=== PATIENT | male | born 1960 ===

== ENCOUNTER 2017-11-08 16:52 | Inpatient (IN) | payer BC ==
[2017-11-08] MEDS ORDERED: NS 0.9% 1000 ML* 1,000 ML IV ONE (17:13)
--- NOTE | 2017-11-08 17:16 | ED ---
Neurological HPI - HPI Summary HPI Summary: This is kelvin Calvo documenting for attending Jl Park M.D. This patient is a 56 year old M presenting to [facility] accompanied by his with a chief complaint of loss of peripheral vision on the right side. Pt states he was working on a ladder 2 hours ago when he had sudden loss of vision which was followed by some dizziness. The patient rates the pain 0/10 in severity. Patient denies weakness, numbness, and slurred speech. When the incident happen he contacted his who brought him to the ED. She checked her phone in the ED and he placed the call to her at 1447. Hx HTN, arthritis, and HLD. Pt chews tobacco and drinks 3 beers daily. - History of Current Complaint Chief Complaint: EDEyeProblem Stated Complaint: RT EYE PARTIAL VISION LOSS Time Seen by Provider: 11/08/17 17:05 Hx Obtained From: Patient Onset/Duration: Started hours ago - 2, Still Present Timing: Constant Onset Severity: Mild Current Severity: Mild Pain Intensity: 0 Pain Scale Used: 0-10 Numeric Syncope Context: Loss of Consciousness: No Associated Signs and Symptoms: Positive: Negative - weakness, numbness, slurred speech, - Allergy/Home Medications Allergies/Adverse Reactions: Allergies Allergy/AdvReac Type Severity Reaction Status Date / Time No Known Allergies Allergy Verified 04/19/15 11:59 Home Medications: Home Medications Atorvastatin* [Lipitor*] 20 mg PO DAILY 11/08/17 [History Confirmed 11/08/17] Lisinopril TAB* [Prinivil TAB*] 10 mg PO DAILY 11/08/17 [History Confirmed 11/08] Omeprazole CAP* [Prilosec CAP* 20 MG] 20 mg PO DAILY 11/08/17 [History Confirmed 11/08/17] celeCOXIB CAP* [CeleBREX CAP*] 200 mg PO DAILY 11/08/17 [History Confirmed 11/08] PMH/Surg Hx/FS Hx/Imm Hx Endocrine/Hematology History: Denies: Hx Diabetes, Hx Thyroid Disease Cardiovascular History: Reports: Hx Hypertension Respiratory History: Denies: Hx Asthma, Hx Chronic Obstructive Pulmonary Disease (COPD) GI History: Denies: Hx Ulcer Infectious Disease History: No Infectious Disease History: Denies: Hx Hepatitis, Hx Human Immunodeficiency Virus (HIV), Traveled Outside the [place] in Last 30 Days - Family History Known Family History: Positive: Hypertension, Diabetes, Other - HLD Negative: Renal Disease, Respiratory Disease, Seizure Disorder - Social History Occupation: Employed Full-time Lives: With Family Alcohol Use: Daily Substance Use Type: Reports: None Smoking Status (MU): Unknown if Ever Smoked Type: Smokeless Tobacco Amount Used/How Often: 1 tin every 2 days Review of Systems Positive: Other - loss of peripheral vision Neurological: Other - dizziness Negative: Weakness, Numbness, Slurred Speech All Other Systems Reviewed And Are Negative: Yes Physical Exam - Summary Physical Exam Summary: VITAL SIGNS: Reviewed. GENERAL: Patient is a well-developed and nourished male who is lying comfortable in the stretcher. Patient is not in any acute respiratory distress. HEAD AND FACE: No signs of trauma. No ecchymosis, hematomas or skull depressions. No sinus tenderness. EYES: PERRLA, EOMI x 2, No injected conjunctiva, no nystagmus. EARS: Hearing grossly intact. Ear canals and tympanic membranes are within normal limits. MOUTH: Oropharynx within normal limits. NECK: Supple, trachea is midline, no adenopathy, no JVD, no carotid bruit, no c- spine tenderness, neck with full ROM. CHEST: Symmetric, no tenderness at palpation LUNGS: Clear to auscultation bilaterally. No wheezing or crackles. CVS: Regular rate and rhythm, S1 and S2 present, no murmurs or gallops appreciated. ABDOMEN: Soft, non-tender. No signs of distention. No rebound no guarding, and no masses palpated. Bowel sounds are normal. EXTREMITIES: FROM in all major joints, no edema, no cyanosis or clubbing. NEURO: Alert and oriented x 3. SKIN: Dry and warm Triage Information Reviewed: Yes Vital Signs On Initial Exam: Initial Vitals Temp Pulse Resp BP Pulse Ox 98.1 F 83 16 194/113 98 11/08/17 17:05 11/08/17 17:05 11/08/17 17:05 11/08/17 17:05 11/08/17 17:05 Vital Signs Reviewed: Yes - [place] Coma Scale Best Eye Response: 4 - Spontaneous Best Motor Response: 6 - Obeys Commands Best Verbal Response: 5 - Oriented Coma Scale Total: 15 Diagnostics - Vital Signs Vital Signs Temp Pulse Resp BP Pulse Ox 11/08/17 17:05 98.1 F 83 16 194/113 98 - Laboratory Result Diagrams: 11/09/17 05:13 11/09/17 05:13 Lab Statement: Any lab studies that have been ordered have been reviewed, and results considered in the medical decision making process. - Radiology CXR Radiology Interpretation Completed By: Radiologist - No evidence for acute intrathoracic disease. Dr Park has reviewed this report. - CT CT Brain CT Interpretation Completed By: Radiologist - #. No evidence for intracranial hemorrhage or CT stigmata of ischemic infarct. #. Negative exam. - EKG 1722 Cardiac Rate: Tachycardia EKG Rhythm: Sinus Tachycardia - at 108 BPM EKG Interpretation: No ST elevations. National Institutes Of Health - NIH Scale Level of Consciousness: Alert/Keenly Responsive Ask Patient the Month and His/Her Age: Both Correct Ask Pt to Open/Close Eyes and Subassemblies Wirer/Release Non-Paretic Hand: Both Correctly Best Gaze (Only Horizontal Eye Movement): Normal Visual Field Testing: Partial Hemianopia Facial Paresis-Pt to Smile & Close Eyes or Grimace Symmetry: Normal/Symmetrical Motor Function - Right Arm: No Drift-Holds 10 Seconds Motor Function - Left Arm: No Drift-Holds 10 Seconds Motor Function - Right Leg: No Drift-Holds 10 Seconds Motor Function - Left Leg: No Drift-Holds 10 Seconds Limb Ataxia-Must be out of Proportion to Weakness Present: Absent Sensory (Use Pinprick to Test Arms/Legs/Trunk/Face): Normal Best Language (Describe Picture, Name Items): No Aphasia Dysarthria (Read Several Words): Normal Extinction and Inattention: No Abnormality Total Score: 1 Re-Evaluation - Re-Evaluation First Eval Re-Evaluation Time: 17:34 Change: Unchanged Comment: I informed the patient of the risks of TPA. He denies any history of rectal bleeding, recent surgery, and brain bleeding. After all risks and benefits were discussed he has agreed to take the medication. Second Eval Re-Evaluation Time: 17:38 Change: Unchanged Comment: Pt was weighed at 190lbs in the ED. Third Eval Re-Evaluation Time: 17:58 Change: Unchanged Comment: TPA that was ordered by Dr. Case was given. Fourth Eval Re-Evaluation Time: 18:15 Change: Unchanged Comment: Patient is just being taken down for his CTA imaging. Course/Dx - Course Assessment/Plan: This patient is a 56-year-old male who presents to the emergency department with chief complaint of right peripheral visual loss. Patient reports that these all occurred at approximately 2:45 PM. The patient doesnt have any upper extremity weakness, lower extremity weakness, slurred speech or any aphasia. Initially after examining the patient and the NIH score is equal to 1 I decided to call a alem marquez. Head CT was negative as per Dr. Vela. At this time I discussed the case with Dr. Case neurologist from [facility] and after he had a telestroke conference with the patient he recommended for the patient to be given TPA. The patient is hypertensive therefore the patient was given labetalol. He reports that the code off for given TPA is 185/115. A right now the patient is 177/97. Therefore the patient was given the TPA. The patient understood the benefits and risks of getting these medications and he and the agreed to get the TPA. TPA was given. At this point the patient will be going to CTA of head and neck requested by Dr. Case. I was informed by the nurse and that the blood pressure has increased again therefore he was given another 20 mg of labetalol. AT this time patient is more stable. We are awaiting for Dr. Case to review the CTA of head and neck and further disposition of patient. He will be signed out to Dr. Quiroz at [facility]. Patient is hemodynamically stable and Alert and Oriented x 3. - Differential Dx Differential Diagnoses Neuro: Positive: Benign Paroxysmal Positional Vertigo, Cerebrovascular Accident, Seizure Disorder, Transient Ischemic Attack, Vasovagal Reaction - Diagnoses Provider Diagnoses: CVA (cerebral vascular accident) During the Visit The Following Alert/Code Occurred: Alem Begum - called at 1713 - Critical Care Time Critical Care Time: 75-104 min Discharge - Sign-Out/Discharge Documenting (check all that apply): Sign-Out Patient Signing out patient TO: Tavon Bernstein - Awaiting CTA and dispo - Discharge Plan Condition: Fair Disposition: ADMITTED TO [facility] - Billing Disposition and Condition Condition: FAIR Disposition: Admitted to [facility] Attestations Scribe Attestation: This is kelvin Calvo documenting for attending Jl Park M.D. User Type: Provider - I, Dr. Park, personally performed the services described in this documentation as scribed in my presence and it is both accurate and complete. Consult Consult: 1720: We discussed patient care with Dr. Lopez, radiology. He states that the CT was negative. [address] Case the neurologist at [facility]. I informed him of the patients case and he recommended TPA. 1744 Dr. Case the neurologist at [facility] started a meeting on the Ipad. 18:00 Dr. Case suggested ordering a CTA of head and neck.
--- NOTE | 2017-11-08 17:28 | RAD ---
Indication: Neurologic changes including visual changes since 2 hours ago. Code marquez. Comparison: No prior exams available on the [facility] [place] for comparison. Technique: Noncontrast CT vertex of skull through foramen magnum. Report: The sulci, ventricles, and basal cisterns are normal for age. Begum matter white matter differentiation is preserved without evidence for edema. No intra or extra axial hemorrhage, mass, or fluid collection detected. Unremarkable visualized orbital contents. Unremarkable calvarium and skull base. Unremarkable scalp. The visualized paranasal sinuses and mastoid air spaces are clear. IMPRESSION: #. No evidence for intracranial hemorrhage or CT stigmata of ischemic infarct. #. Negative exam. #. Results discussed with Dr. Park 11/08/2017 5:25 PM EDT
[2017-11-08] MEDS ORDERED: Alteplase* 100 MG VIAL ONE (17:34)
[2017-11-08] MEDS: Labetalol IV* 5 MG/ML 20 ML VIAL IV PUSH ONE ×2 (17:37→18:03)
[2017-11-08 17:41] LABS: ABS Basophils 0.1 10^3/ul (0-0.2); ABS Eosinophils 0.1 10^3/ul (0-0.6); ABS Lymphocytes 1.8 10^3/ul (1.0-4.8); ABS Monocytes 0.7 10^3/ul (0-0.8); ABS Neutrophils 5.7 10^3/ul (1.5-7.7); ABS Nucleated RBC 0 10^3/ul; Eosinophil % 1.3 % (0-6); Hematocrit 42 % (42-52); Hemoglobin 14.5 g/dl (14.0-18.0); Lymphocyte % 21.6 % (25-47); Mean Corpuscular HGB Conc 35 g/dl (31-36); Mean Corpuscular Hemoglobin 31 pg (27-31); Mean Corpuscular Volume 88 fL (80-94); Mean Platelet Volume 8.1 um3 (7.4-10.4); Nucleated Red Blood Cells % 0; Platelet Count 272 10^3/ul (150-450); Red Blood Count 4.74 10^6/ul (4.00-5.40); Red Cell Distribution Width 14 % (10.5-15); White Blood Count 8.4 10^3/ul (3.5-10.8)
[2017-11-08] MEDS ORDERED: ALTEPLASE IV ONE ×2 (17:43)
[2017-11-08 17:49] LABS: INR 0.86 (0.77-1.02)
[2017-11-08 18:01] LABS: EGFR Non-African American 68.3 (>60)
[2017-11-08] MEDS ORDERED: Iohexol 350* (CONTRAST) 500 ML MDV IV ONE (18:21)
--- NOTE | 2017-11-08 18:51 | RAD ---
Indication: Code marquez. Hypertension. Comparison: No relevant prior exams available on the [facility] for comparison. Technique: Sitting AP chest 1833 hours Report: Clear lungs and pleural spaces. Negative for pneumothorax. The heart, pulmonary vasculature, and mediastinal contours are unremarkable. Unremarkable osseous structures and soft tissue contours. IMPRESSION: #. No evidence for acute intrathoracic disease.
--- NOTE | 2017-11-08 19:11 | RAD ---
INDICATION: RIGHT vision loss. COMPARISON: Noncontrast head CT of the same date. TECHNIQUE: Multidetector CT images were obtained from the aortic arch to the vertex of the head with 80 mL Omnipaque 350 IV contrast. Arterial phase of enhancement. Multiplanar reformation including maximum intensity projection. 3-D arterial volume rendering. Stenosis estimations based on denominator of distal arterial diameter. NECK ANGIOGRAM REPORT: Normal configuration of the aortic arch branch vessels. Negative for ostial stenosis of the aortic arch branch vessels. Tortuous RIGHT brachiocephalic artery. Minimal atherosclerotic plaque at the proximal RIGHT internal carotid artery without resulting stenosis based on NASCET criteria. Tortuous LEFT common and internal carotid arteries. Negative for LEFT carotid stenosis. Patent dominant LEFT and smaller RIGHT vertebral arteries with both vertebral arteries contributing to the basilar artery. Multilevel cervical spine degenerative spondylosis. Congenitally generous pedicles mitigate against development of acquired central canal stenosis. Uncinate process spurring results in mild bilateral osseous foraminal stenosis at C5-C6. NECK ANGIOGRAM IMPRESSION: Negative for carotid stenosis. HEAD ANGIOGRAM REPORT: Noncalcific plaque at the bilateral intracranial internal carotid arteries at the carotid canals and siphons with less than 50% stenosis resulting. Unremarkable M1 and M2 segments of the middle cerebral arteries. Patent A1 and A2 anterior cerebral artery segments. Patent anterior communicating artery. Small diameter patent basilar artery and unremarkable cerebellar artery origins. Patent RIGHT posterior cerebral artery appears supplied by the anterior circulation via the RIGHT posterior communicating artery. Patent LEFT posterior cerebral artery appears supplied by both the posterior and anterior circulation. Negative for intracranial aneurysms. HEAD ANGIOGRAM IMPRESSION: #. Noncalcific plaque at the bilateral intracranial internal carotid arteries at the carotid canals and siphons with less than 50% stenosis resulting. #. Negative for central intracranial large vessel hemodynamic significant arterial stenosis or occlusion. CPT II: CPT II Codes: 3100F
--- NOTE | 2017-11-08 19:23 | ED ---
Progress - Progress Note Progress Note: This is scribe Jerrell Jane documenting for attending Kim Bernstein M.D. CTA Head Impressions are as follows: NECK ANGIOGRAM REPORT: Normal configuration of the aortic arch branch vessels. Negative for ostial stenosis of the aortic arch branch vessels. Tortuous RIGHT brachiocephalic artery. Minimal atherosclerotic plaque at the proximal RIGHT internal carotid artery without resulting stenosis based on NASCET criteria. Tortuous LEFT common and internal carotid arteries. Negative for LEFT carotid stenosis. Patent dominant LEFT and smaller RIGHT vertebral arteries with both vertebral arteries contributing to the basilar artery. Multilevel cervical spine degenerative spondylosis. Congenitally generous pedicles mitigate against development of acquired central canal stenosis. Uncinate process spurring results in mild bilateral osseous foraminal stenosis at C5-C6. NECK ANGIOGRAM IMPRESSION: Negative for carotid stenosis. HEAD ANGIOGRAM REPORT: Noncalcific plaque at the bilateral intracranial internal carotid arteries at the carotid canals and siphons with less than 50% stenosis resulting. Unremarkable M1 and M2 segments of the middle cerebral arteries. Patent A1 and A2 anterior cerebral artery segments. Patent anterior communicating artery. Small diameter patent basilar artery and unremarkable cerebellar artery origins. Patent RIGHT posterior cerebral artery appears supplied by the anterior circulation via the RIGHT posterior communicating artery. Patent LEFT posterior cerebral artery appears supplied by both the posterior and anterior circulation. Negative for intracranial aneurysms. HEAD ANGIOGRAM IMPRESSION: #. Noncalcific plaque at the bilateral intracranial internal carotid arteries at the carotid canals and siphons with less than 50% stenosis resulting. #. Negative for central intracranial large vessel hemodynamic significant arterial stenosis or occlusion. This report was reviewed by ED physician. I, Dr. Bernstein, personally performed the services described in this documentation as scribed in my presence and it is both accurate and complete. Re-Evaluation - Re-Evaluation First Eval Re-Evaluation Time: 17:34 Change: Unchanged Comment: I informed the patient of the risks of TPA. He denies any history of rectal bleeding, recent surgery, and brain bleeding. After all risks and benefits were discussed he has agreed to take the medication. Second Eval Re-Evaluation Time: 17:38 Change: Unchanged Comment: Pt was weighed at 190lbs in the ED. Third Eval Re-Evaluation Time: 17:58 Change: Unchanged Comment: TPA that was ordered by Dr. Case was given. Fourth Eval Re-Evaluation Time: 18:15 Change: Unchanged Comment: Patient is just being taken down for his CTA imaging. Course/Dx - Course Course Of Treatment: Dr. Bernstein received this patient as a sign-out from Dr. Park. CTA Head was done with impressions described above. Dr. Mishra was consulted on the patient's case at 19:27. CTA Head results were discussed. As there was no evidence for significant clots or stenosis, The patient will be admitted to [facility] by Dr. Mishra for further workup. Patient was diagnosed with CVA. - Diagnoses Provider Diagnoses: CVA (cerebral vascular accident) During the Visit The Following Alert/Code Occurred: Code Begum - called at 1713 - Provider Notifications Discussed Care Of Patient With: Bradley Mishra Time Discussed With Above Provider: 19:27 Instructed by Provider To: Other - Dr. Mishra was consulted on the patient' s case at 19:27. CTA Head results were discussed. As there was no evidence for significant clots or stenosis, Dr. Mishra will be admitted to [facility] by Dr. Mishra for further workup. Discharge - Sign-Out/Discharge Documenting (check all that apply): Patient Departure - admit - Discharge Plan Condition: Fair Disposition: ADMITTED TO [facility]
[2017-11-08] MEDS ORDERED: Ondansetron INJ* 2 MG/ML VIAL IV PRN (20:03)
[2017-11-08] MEDS ORDERED: Acetaminophen TAB* 325 MG PO PRN (20:03)
[2017-11-08 20:13] LABS: Urine Appearance Clear; Urine Blood Negative (Negative); Urine Color Yellow; Urine Ketones Negative (Negative); Urine Protein Negative (Negative); Urine Specific Gravity 1.045 (1.010-1.030); Urine Urobilinogen Negative (Negative)
--- NOTE | 2017-11-08 22:37 | HP ---
CC: Dr. Stapleton; Dr. Davis * HISTORY AND PHYSICAL: DATE OF ADMISSION: 11/08/17 PRIMARY CARE PROVIDER: Dr. Stapleton. ATTENDING PHYSICIAN WHILE IN HOSPITAL: Dr. Bradley Mishra MD * (report dictated by Isauro Parrish NP). CHIEF COMPLAINT: Visual loss. CONSULTING NEUROLOGIST: Dr. Davis. HISTORY OF PRESENT ILLNESS: Mr. Navarrete is a 56-year-old male patient. He has a history of hyperlipidemia and hypertension and also former history of smoking. He comes in with complaints of having loss of his vision in his right eye. He says he could see out of the right eye centrally but if he tried looking to the periphery of the right eye, he could not see. He says that he noticed it when he was trying to go up to stairs at work, he could not see and he was stumbling. He noted that his gait was unsteady. He denied having any trouble with talking. There are no speech problems. He called his . His felt that they should go to the doctor, so they came right to the ER here. He denied having any weakness to one side. There was no facial drooping reported. No trouble with the right leg or right upper extremity or left side for that matter. He denied any recent changes to medications. He said he does not take aspirin. He was concerned because of this. He came into the ED. A code thomas was called. He was ultimately given TPA. We were asked to evaluate for admission. PAST MEDICAL HISTORY: Significant for: 1. Hypertension. 2. Hyperlipidemia. 3. GERD. 4. Arthritis. PAST SURGICAL HISTORY: Denied. HOME MEDICATIONS: Include: 1. Lisinopril 10 mg daily. 2. Lipitor 20 mg daily. 3. Celebrex 200 mg daily. 4. Omeprazole 20 mg daily. ALLERGIES TO MEDICATIONS: Include no known drug allergies. FAMILY HISTORY: His mother had hypertension and hyperlipidemia. Father had history of lung cancer. SOCIAL HISTORY: He is a former smoker, quit in his 20s. He does chew tobacco. He does drink occasionally. Surrogate decision maker is his . REVIEW OF SYSTEMS: There was no documented fever. Denies having any significant weight change. Denies having any double vision. No ear discharge. Denies any rhinorrhea. No sore throat. No thyroid enlargement. Denies having any chest pain. There has been no orthopnea, no nocturnal dyspnea. There has been no abdominal pain. No nausea, no vomiting. There was no dysuria , no frequency, no seizure. He denied having loss of consciousness, pruritus. No skin ulceration. Review of 14 systems completed, all others negative. PHYSICAL EXAMINATION GENERAL: Mr. Navarrete is a 56-year-old male patient. He is sitting in the ED stretcher. He does not appear to be in any acute distress. VITAL SIGNS: Now blood pressure 155/100, pulse 92, respirations 18, O2 sat 94% , temperature 98.3. HEENT: Head: Atraumatic. Eyes: EOMs are intact. Sclerae are anicteric and not pale. Throat: Oral mucosa appears to be moist. No oropharyngeal erythema. NECK: Supple. LUNGS: Clear to auscultation. No wheezes, rales, or rhonchi. HEART: Sounds S1, S2. He had a regular rate and rhythm. No murmurs, rubs or gallops. ABDOMEN: Soft, it was flat. It was nontender. Bowel sounds were present. EXTREMITIES: Pulses were 2+ throughout. He is moving all 4 extremities with 5/ 5 strength. NEUROLOGIC: The patient is awake, he is alert. He is oriented x3. Cranial nerves is overall intact. I could not appreciate any visual field cuts. He had no evidence of gaze. No facial weakness or numbness. He was moving all 4 extremities. He had no drift. His sensory was intact to the lower extremities. He had no neglect. Akusyp-ly-bqbq and wuhb-lx-qrsd testing were both intact bilaterally. No facial drooping. His speech was clear. His skin was grossly intact. LABORATORY DATA: Labs today are revealing a WBC of 8.4, RBC of 4.74, hemoglobin of 14.5, hematocrit of 42, platelet count 272. INR 0.86. PTT at 29. Sodium was 141, potassium of 3.8, chloride of 106, bicarb 25, BUN 20, creatinine 1.11, glucose 111, lactic 1, calcium 9.7, total bili is 0.5, AST 13, ALT 39, alk phos 71. Troponin 0.01 albumin of 4.4. He did have imaging in the ED starting out with brain CT, which showed impression: No evidence for intracranial hemorrhage or CT stigmata of ischemic infarct. Negative exam. Chest x-ray showed no evidence of acute intrathoracic disease. Head CTA shows noncalcified plaque at the bilateral intracranial internal carotid arteries at the carotid canals and syphons with less than 50% stenosis resulting. Negative for central intracranial large vessel, hemodynamically significant arterial occlusion or stenosis. EKG obtained today, no previous for comparison, showed a sinus tachycardia rate of 108, he has had no ST elevations, he was inverted in lead III and negative in aVF, but no elevation was noted. No previous EKGs for comparison. Old medical records were reviewed. ASSESSMENT AND PLAN: Mr. Navarrete is a 56-year-old male patient coming into the ED today with complaints of visual loss in his right eye peripherally according to the patient. We were asked to evaluate for admission. He received TPA. He will be admitted under inpatient status for: 1. Cerebrovascular accident: He was evaluated by [facility]. TPA was advised, it was given. I did touch base with Dr. Davis. He will evaluate the patient tomorrow. We will keep the patient n.p.o. He will be on bedrest tonight. After 24 hours, we will get PT/OT evaluation and a swallow eval at the bedside can be obtained. I will get a CT noncontrast and CT in 24 hours to assess for bleeding. I have ordered an MRI. I have ordered an echo with bubble study. I have ordered neuro checks per TPA protocol. We will continue with bleeding precautions and we will continue to follow him closely and follow frequent vital signs and he will be placed in our ICU. We will start aspirin after 24 hours. 2. Hypertension: The goal is to try to keep the systolic less than 180, diastolic less than 110. He is fitting the goal now. If needed, I will order p.r.n. hydralazine, but we will allow for permissive hypertension and treat within those parameters. 3. Hyperlipidemia: Lipid panel is pending. We will continue with statin. 4. DVT prophylaxis: SCDs have been ordered. 5. Arthritis: I am holding the Celebrex. 6. Gastroesophageal reflux disease: I have continued his PPI therapy. 7. Fluid and nutrition: He is n.p.o. for the first 24 hours. 8. Code status: Full code. TIME SPENT: Time spent on admission, which was critical care time, was 60 minutes, greater than half of the time was spent [id number] with the patient obtaining history and physical, the other half of the time was spent going over the plan of care with the patient and implementing the plan of care. I did discuss plan of care with my attending, Dr. Mishra, he is in agreement. ISAURO PARRISH NP [id number]/[facility] #: [id number] CAROLE
[2017-11-09 05:36] LABS: ABS Basophils 0.1 10^3/ul (0-0.2); ABS Eosinophils 0.1 10^3/ul (0-0.6); ABS Lymphocytes 1.4 10^3/ul (1.0-4.8); ABS Monocytes 0.4 10^3/ul (0-0.8); ABS Nucleated RBC 0 10^3/ul; Eosinophil % 1.1 % (0-6); Hematocrit 40 % (42-52); Hemoglobin 13.6 g/dl (14.0-18.0); Lymphocyte % 20.1 % (25-47); Mean Corpuscular HGB Conc 34 g/dl (31-36); Mean Corpuscular Hemoglobin 30 pg (27-31); Mean Corpuscular Volume 89 fL (80-94); Mean Platelet Volume 7.8 um3 (7.4-10.4); Nucleated Red Blood Cells % 0; Platelet Count 249 10^3/ul (150-450); Red Blood Count 4.52 10^6/ul (4.00-5.40); Red Cell Distribution Width 13 % (10.5-15); White Blood Count 6.9 10^3/ul (3.5-10.8)
[2017-11-09 05:52] LABS: EGFR Non-African American 75.3 (>60)
[2017-11-09] MEDS ORDERED: Atorvastatin* 20 MG TAB PO SCH (09:00)
[2017-11-09] MEDS ORDERED: Omeprazole CAP* 20 MG PO SCH (09:00)
--- NOTE | 2017-11-09 10:27 | ECHO ---
Patient: ROSALINA HERRERA [facility] Rec#: [id number] : 1960 Date: 11/09/2017 Age: 56y Height: 162.56 cm / 64.0 in Weight: 89.81 kg / 197.9 lbs Sex: M BSA: 1.95 Room#: ICU4 Admit Date#: 11/08/2017 Type: Inpatient Referring: Isauro Parrish NP Reading: Rosalia Recinos MD Stereo Compiler: Shannan Cárdenas RDCS CC: Chandrika Davis CC: Armen Stapleton MD Transthoracic Echocardiogram Indication: CVA BP: 121/77 HR: 67 Rhythm: NSR Findings History: Vision loss, HTN,HLD,GERD,former smoker. Technical Comments: The study quality is good. Completed at 0825. Left Ventricle: The left ventricular chamber size is normal. Mild concentric left ventricular hypertrophy is observed. Global left ventricular wall motion and contractility are within normal limits. The estimated ejection fraction is 55-60%. There is no consistent Doppler evidence of clinically significant diastolic dysfunction. Left Atrium: The left atrial chamber size is normal. Right Ventricle: The right ventricle is mildly dilated. The right ventricular global systolic function is normal. Right Atrium: The right atrium is mildly dilated. A patent foramen ovale is not demonstrated with color Doppler and agitated contrast. Aortic Valve: The aortic valve is trileaflet. There is no evidence of aortic regurgitation. There is no evidence of aortic stenosis. Mitral Valve: The mitral valve leaflets are mildly thickened. There is trace to mild mitral regurgitation. There is no evidence of mitral stenosis. Tricuspid Valve: The tricuspid valve leaflets are normal. There is trace to mild tricuspid regurgitation. No pulmonary hypertension is noted. There is no tricuspid stenosis. Pulmonic Valve: The pulmonic valve appears normal. There is trace to mild pulmonic regurgitation. There is no pulmonic stenosis. Pericardium: The pericardium appears normal. Aorta: There is moderate dilatation of the ascending aorta. There is no dilatation of the aortic arch. There is mild dilatation of the aortic root. Pulmonary Artery: The main pulmonary artery appears normal. Venous: The venous system is not well visualized. Contrast: Normal saline was used as contrast for the bubble study. Intravenous contrast was used to help determine presence of intracardiac shunting. Conclusions Mild concentric left ventricular hypertrophy is observed. Global left ventricular wall motion and contractility are within normal limits. The estimated ejection fraction is 55-60%. Mild right ventricular chamber dilatation. The right ventricular systolic function is normal. There is trace to mild mitral regurgitation. There is trace to mild tricuspid regurgitation. No pulmonary hypertension is noted. There is moderate dilatation of the ascending aorta: 4.0 cm. No patent foramen ovale is demonstrated with color Doppler and agitated contrast. No prior echo to compare. Measurements Name Value Normal Range RVIDd (AP) 2D 2.8 cm (0.9 - 2.6) RVDdMajor (2D) 3.7 cm (2.2 - 4.4) RAd ISD 4CH 5.1 cm (3.4 - 4.9) RA (A4C)W 3.1 cm (2.9 - 4.6) IVSd (2D) 1.1 cm (0.6 - 1) LVPWd (2D) 1.1 cm (0.6 - 1) LVIDd (2D) 4.5 cm (3.6 - 5.4) LVIDs (2D) 3.4 cm - LV FS (2D) 24 % (25 - 45) Aortic Annulus 2.5 cm (1.4 - 2.6) Ao root diameter (2D) 3.8 cm (2.1 - 3.5) Ascending Ao 4 cm (2.1 - 3.4) Aortic arch 2.6 cm (1.8 - 3.4) Descending Ao 0.8 cm - LA dimension (AP) 2D 3.6 cm (2.3 - 3.8) LAd ISD 4CH 5.2 cm (2.9 - 5.3) LA ISD 4CH W 3.4 cm (2.5 - 4.5) Name Value Normal Range LA ESV SP 4CH (A/L) 43 ml - LA ESV SP 2CH (A/L) 50 ml - LA ESV BP (A/L) 48 ml - LA ESV BP (A/L) index 24.67 ml/m2 - LA ESV SP 4CH (MOD) 39 ml - LA ESV SP 2CH (MOD) 47 ml - Name Value Normal Range MV E-wave Vmax 0.6 m/sec - MV deceleration time 183 msec - MV A-wave Vmax 0.7 m/sec - MV E:A ratio 0.8 ratio - LV septal e' Vmax 0.09 m/sec - LV lateral e' Vmax 0.08 m/sec - LV E:e' septal ratio 6.67 ratio - LV E:e' lateral ratio 7.5 ratio - Name Value Normal Range AV Vmax 1.5 m/sec - AV VTI 32.3 cm - AV peak gradient 9.69 mmHg - AV mean gradient 5.08 mmHg - LVOT Vmax 0.8 m/sec - LVOT VTI 20.9 cm - LVOT peak gradient 2.75 mmHg - LVOT mean gradient 1.23 mmHg - Name Value Normal Range MR Vmax 3.7 m/sec - MR VTI 154 cm - Name Value Normal Range TR Vmax 2.3 m/sec - TR peak gradient 22 mmHg - RAP 8 mmHg - RVSP 30 mmHg - Name Value Normal Range PV Vmax 0.7 m/sec - PV peak gradient 1.91 mmHg -
--- NOTE | 2017-11-09 14:06 | CONS ---
CC: Dr. Brunner * NEUROLOGY CONSULTATION NOTE: DATE OF CONSULT: 11/09/17 PRIMARY CONSULTING PROVIDER: Dr. Brunner/Isauro Parrish NP Neurology was consulted for the evaluation of stroke, status post TPA. CHIEF COMPLAINT: Visual loss on the right side. HISTORY OF PRESENT ILLNESS: Mr. Aroldo Navarrete is a pleasant 56-year-old right- handed man, who has a history significant for dyslipidemia and hypertension, who presented to [facility] ER with symptoms of sudden onset visual loss on the right periphery. The patient was at work and he was climbing a ladder when he noticed he lost vision on the right side. He lifted his right arm and was only able to see when he got to central vision. It was extremely cloudy and nothing was there on the right side. He denied any focal weakness. He denied any paresthesias. He denied any headaches. He has never had any similar symptoms in the past. He is aspirin naive. A Code Begum was initiated yesterday at 1715. [facility] evaluated the patient and he was ultimately given TPA as he was a candidate since the visual loss is disabling neurological finding. The patient's symptoms completely resolved late last in evening at approximately 10 p.m. NIH stroke scale completed today at 10:30 a.m. was 0. The patient received TPA at 1758. PAST MEDICAL HISTORY: Dyslipidemia, hypertension, GERD, arthritis. PAST SURGICAL HISTORY: None. HOME MEDICATIONS: Include: 1. Lisinopril 10 mg p.o. daily. 2. Lipitor 20 mg nightly p.o. daily. 3. Celebrex 200 mg p.o. daily. 4. Omeprazole 20 mg daily. ALLERGIES: No known drug allergies. FAMILY HISTORY: His father due to lung cancer. His mother has hypertension and dyslipidemia. SOCIAL HISTORY: The patient is a former smoker. He quit 20 years ago. He does chew tobacco. He drinks 3 beers daily. He denied any recreational drug use. REVIEW OF SYSTEMS: A 14-point review of systems was obtained and otherwise negative except for what was mentioned in the HPI. PHYSICAL EXAM: Vitals: Temperature 99.6, heart rate 80, respiratory rate 22, blood pressure 128/87. General: Well-nourished, well-developed man, in no acute distress. He is alert and cooperative appears stated age. Head: Normocephalic, atraumatic. Eyes: Conjunctivae/corneas are clear. No sclerae icterus. Neck: Supple and symmetrical. No carotid bruit. Lungs: Clear to auscultation bilaterally. Nonlabored breathing. Cardiovascular: Regular rhythm. Normal S1, S2. Radial pulses are palpable. Extremities: Normal range of motion with no cyanosis. Skin: No skin lesions or lacerations. Psych: Affect is broad and normal mood. Easy to establish rapport. Neurological Examination: Mental Status: Awake, alert, and oriented to person, place, time, and general circumstances. Speech and language including expression, naming, repetition, and comprehension were all assessed and found to be normal. Cranial Nerves: Normal confrontation bilaterally. Pupils are mid range and reactive to light. Normal consensual response. Extraocular muscles are intact. No ptosis. No conjugate or asymmetrical nystagmus. Sensation is intact on the forehead, cheeks, and jaw region bilaterally. No facial asymmetry , although he has slight loss of the nasolabial fold on the right side when smiling. Able to hear throughout the history process. Symmetric palatal elevation. Normal strength against shoulder resistance. Tongue is symmetrical in midline with no atrophy. Motor: No abnormal movements or pronator drift. Normal bulk and tone throughout. No fasciculation. Strength is 5/5 in the upper and lower extremities bilaterally. Reflexes right/left brachioradialis 3/ 2, biceps 3/2, triceps 3/2, patella 2/2, ankles 2/2, plantar flexor bilaterally. Sensation is intact to light touch throughout. Normal vibration and proprioception at the great toes. Coordination: Normal finger-to- nose and rapid alternative movement. Gait and station: Narrow based. Normal stance and no ataxia. LABS AND IMAGING AND OTHER DIAGNOSTIC TESTING: Laboratory findings: WBC 6.9, hemoglobin 13.6, hematocrit 40, and platelet count of 249. INR 0.86. APTT 29. Sodium 139, potassium 3.9, chloride 106, carbon dioxide 27, glucose of 111. Hemoglobin A1c 5.8. Lactic acid 1. Cholesterol 189, LDL 115. Urinalysis showed no evidence of pyuria. The patient had CT head without contrast completed yesterday at 1713 on that showed no acute intracranial abnormality. He had a CTA head and neck at 1759 that showed no evidence of intracranial large vessel occlusion. He had noncalcified plaque bilateral intracranial internal carotid arteries at carotid canal with less than 50% stenosis seen bilaterally. The transthoracic echo was unremarkable and there was no evidence of wall motion contractility problems. His ejection fraction was 55/60%. There was no patent foramen ovale demonstrated on color Doppler and agitated contrast. EKG showed normal sinus rhythm with the rate of 69. Telemetry did not show any evidence of atrial fibrillation. ASSESSMENT AND RECOMMENDATIONS: 1. Mr. Aroldo Navarrete is a 56-year-old man with history significant for dyslipidemia and hypertension who presented with sudden onset of what appears to be a right homonymous hemianopsia that completely reversed after IV TPA. He received IV TPA within the four and half hour window. Other differential diagnosis such as complicated migraine headaches less likely in this case since the patient has no history of headaches. NIH stroke scale today is 0. The patient was deemed not a candidate for mechanical thrombectomy given that he did not have any large vessel occlusion. No need for physical or occupational therapy since the patient is ambulatory without assistance. I still believe he should receive at least speech evaluation. MRI of the brain without contrast is pending. We need to repeat CT of the head without contrast within 24 hours which is around 6 p.m. today to evaluate for hemorrhagic transformation. Following the CT of the head today if there is no evidence of hemorrhagic transformation, please start Plavix 75 mg daily and aspirin 81 mg daily for 30 days. He then can discontinue Plavix and start on aspirin 325 mg daily. Please increase the atorvastatin to 80 mg nightly. Please obtain speech evaluation. We discussed primary and secondary stroke prevention with the patient. Since the patient has no neurological deficits, I suspect this may be transient ischemic attack to the left posterior cerebral artery. The mechanism is unknown, but could be cardioembolic. Workup has not revealed source of emboli thus far. The patient may need to be monitored with the Holter monitor as an outpatient. 2. Dyslipidemia - Increased atorvastatin to 80 mg nightly. 3. Hypertension - Place holding parameters on all his antihypertensive agents to hold if systolic blood pressure is less than 120 mmHg. Keep his systolic blood pressure below 180 and above 120. 4. I discussed doing at bedside swallow evaluation with the bedside nurse and advanced his diet as tolerated. Neurology will continue to follow. If testing is negative by the end of the day, the patient wishes to go home if possible. We can discuss this following the imaging studies. CRITICAL CARE TIME SPENT: Critical care time 65 minutes. I spent a total of 65 minutes and greater than 50% of that was spent directly, reviewing the medical chart, obtaining history, examining the patient, education counselling, and discussing the treatment plan prognosis. I discussed his above recommendations with Dr. Brunner. [id number]/[facility] #: [id number] CAROLE
[2017-11-09] MEDS: LORazepam INJ* 2 MG/ML 1 ML VIAL IV PUSH PRN ×2 (14:18→15:21)
--- NOTE | 2017-11-09 14:53 | RAD ---
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 Assess for retained metallic foreign bodies prior to MRI. COMPARISON: November 08, 2017 CT. TECHNIQUE: AP and lateral views of the orbits were obtained. FINDINGS: No radiopaque foreign bodies are identified at the level of the orbits or visualized calvarium. Dental amalgam noted. IMPRESSION: No radiopaque orbital foreign bodies evident.
[2017-11-09] MEDS ORDERED: Atorvastatin* 80 MG TAB PO ONE (15:35)
--- NOTE | 2017-11-09 15:55 | RAD ---
Indication: Stroke. Vision loss. Image sequences: Sagittal and axial T1, axial T2, FLAIR, diffusion and susceptibility weighted images of the brain were obtained. Ventricular structures are midline. No midline shift is noted. The extra-axial spaces are unremarkable. The FLAIR images demonstrate punctate areas of signal abnormality in the deep white matter as well as in the periventricular and subcortical white matter consistent with minor microvascular change. There is a area of restriction of diffusion involving the cortex just posterior to the left calcarine sulcus. This demonstrates decreased signal on the ADC map and is consistent with a cortical infarct. No midline shift is noted. Mild vasogenic edema is noted in this area. No other areas of restriction of diffusion is noted. The posterior fossa and brainstem demonstrates no evidence of abnormal signal. Mastoid air cells demonstrate no evidence of effusion. Paranasal sinuses are otherwise unremarkable. Visualized orbits are unremarkable. IMPRESSION: Area of restriction of diffusion involving the cortex of the left occipital lobe just posterior to the calcarine sulcus consistent with a cortical infarct. Likely chronic ischemic White matter change is noted.
--- NOTE | 2017-11-09 17:09 | RAD ---
Indication: CVA. Received TPA. Comparison: November 09, 2017 MRI and November 08, 2017 CT. Technique: Noncontrast CT vertex of skull through foramen magnum. Report: Based on correlation with the MRI of the same date there is subtle marquez matter white matter obscuration at the medial LEFT occipital lobe corresponding with the region of the diffusion abnormality. Negative for associated mass effect with normal cerebral sulci, ventricles, and basal cisterns. No new region of marquez matter white matter obscuration evident. Negative for intra or extra-axial hemorrhage. Unremarkable calvarium and skull base. Clear visualized paranasal sinuses and mastoid air spaces. Unremarkable scalp. IMPRESSION: #. Based on correlation with the MRI of the same date there is subtle marquez matter white matter obscuration at the medial LEFT occipital lobe corresponding with the region of the diffusion abnormality. #. Negative for mass effect. #. Negative for intracranial hemorrhage.
[2017-11-09] MEDS ORDERED: Aspirin 81 mg CHEW TAB* 81 MG TAB.CHEW PO ONE (17:33)
[2017-11-09] MEDS ORDERED: Clopidogrel TAB* 75 MG PO ONE (17:33)
[2017-11-09 17:39] VITALS: BP 103/70
[2017-11-09] MEDS ORDERED: Atorvastatin* 20 MG TAB PO ONE (18:00)
[2017-11-10] MEDS ORDERED: CMC: Pantoprazole TAB (NF) 40 MG TAB PO SCH (09:00)
--- NOTE | 2017-11-10 13:44 | DS ---
DISCHARGE SUMMARY: DATE OF ADMISSION: 11/08/17 DATE OF DISCHARGE: 11/09/17 ADMITTING PROVIDER: Isauro Parrish NP. ATTENDING PHYSICIAN ON THE DAY OF DISCHARGE: Toney Brunner MD. PRIMARY CARE PHYSICIAN: Dr. Stapleton. CONSULTING NEUROLOGIST: Dr. Davis. CHIEF COMPLAINT: Right peripheral vision loss. PRINCIPAL DIAGNOSIS: Left occipital ischemic stroke. HISTORY OF PRESENT ILLNESS AND HOSPITAL COURSE: Aroldo Navarrete is a 56-year-old male with past medical history of hypertension, hyperlipidemia, former smoker. He was standing on a ladder at work when he suddenly noticed that the right periphery of his vision in right eye was suddenly cloudy. He had some gait instability and presented to the [facility] Emergency Room. He denied any slurring of speech, focal weakness, or facial drooping. Jovanna marquez was called in the emergency room. Noncontrast Head CT showed no evidence of intracranial hemorrhage or CT stigmata of ischemic infarct. Head CTA demonstrated no large vessel hemodynamically significant arterial stenosis or occlusion and noncalcific plaque at the bilateral intracranial internal carotid arteries at the carotid canals and siphons were less than 50% stenosis resulting. [facility] recommended administration of tPA thrombolytics. The patient was monitored in the intensive care unit with frequent neuro checks. He had a transthoracic echocardiogram with bubble study, which showed no evidence of PFO. Ejection fraction was 55% to 60%. No evidence of diastolic dysfunction. [id number] mitral regurgitation, [id number] tricuspid regurgitation, mild concentric left ventricular hypertrophy. Dr. Chandrika Davis of Neurology consulted in the morning on hospital day #2. The patient got a repeat noncontrast CT head 24 hours after tPA administration, which was again negative for any intracranial hemorrhage. He received a MRI of the brain at the same time that was an noncontrast that demonstrated an area of restriction of diffusion involving the cortex of the left occipital lobe just posterior to the calcarine sulcus consistent with a cortical infarct along with likely chronic ischemic white matter changes. Dr. Davis recommended initiation of Plavix 75 mg daily, aspirin 81 mg daily, both of these for 30 days, after which the patient will be transitioned to 324 mg of aspirin daily. Recommended increase his home atorvastatin to 80 mg daily. The patient had LDL of 115 and HDL of 48 and A1c of 5.8. He is being recommended followup with potential Holter monitor or loop recorder to document any occult atrial fibrillation that may have caused an embolic stroke. His visual deficits had completely resolved he says by the morning of hospital day #2, but of note, it was not present on neurological exam by Isauro Parrish later in the day on hospital day #1. NIH stroke scale on discharge was 0. Luna score was 0. DISCHARGE MEDICATIONS: Include: 1. Omeprazole 20 mg p.o. daily. 2. Aspirin 81 mg daily (new). 3. Atorvastatin 80 mg p.o. daily (increased from 20 mg daily). 4. Clopidogrel 75 mg p.o. daily for 30 days. 5. Lisinopril 10 mg p.o. daily. 6. His Celebrex was recommended to be held in the setting of his new dual antiplatelet therapy. DISCHARGE DIET: Heart-healthy, carbohydrate consistent given his borderline diabetes, A1c of 5.8. ACTIVITY LEVEL: No restrictions. FOLLOWUP: Please follow up with Dr. Armen Stapleton within 5 days of discharge. 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 Deni Delong and Dr. Marc Ovalles respectively. He should be followed up within 1 to 4 weeks for Cardiology and 2 to 4 weeks for Neurology. As mentioned, the benefit of occult atrial fibrillation monitoring with Holter or loop recorder to be considered as an outpatient. TIME SPENT ON DISCHARGE: Thirty-five minutes. [id number]/[facility] #: [id number] [facility]
== END 2017-11-09 18:30 | disposition home or self-care (01) | DRG 45 ==
LOC: ED 16:52 → ICU 20:05
PROVIDERS: ADMIT Hospitalist; ATTEND Hospitalist
DX: I63.9 Cerebral infarction, unspecified (principal); I10 Essential (primary) hypertension; E78.5 Hyperlipidemia, unspecified; M19.90 Unspecified osteoarthritis, unspecified site; F17.228 Nicotine dependence, chewing tobacco, with other nicotine-induced disorders; R40.2142 Coma scale, eyes open, spontaneous, at arrival to emergency department; R40.2362 Coma scale, best motor response, obeys commands, at arrival to emergency department; R40.2252 Coma scale, best verbal response, oriented, at arrival to emergency department; R00.0 Tachycardia, unspecified; R29.701 NIHSS score 1; H54.61 Unqualified visual loss, right eye, normal vision left eye; M47.812 Spondylosis without myelopathy or radiculopathy, cervical region; M48.02 Spinal stenosis, cervical region; I65.23 Occlusion and stenosis of bilateral carotid arteries; K21.9 Gastro-esophageal reflux disease without esophagitis; I08.1 Rheumatic disorders of both mitral and tricuspid valves; R73.03 Prediabetes; Z80.1 Family history of malignant neoplasm of trachea, bronchus and lung; Z79.01 Long term (current) use of anticoagulants; Z72.89 Other problems related to lifestyle; Z83.3 Family history of diabetes mellitus; Z82.49 Family history of ischemic heart disease and other diseases of the circulatory system; Z83.49 Family history of other endocrine, nutritional and metabolic diseases; Z79.82 Long term (current) use of aspirin
CPT/HCPCS: 36415; 70030; 70450; 70496; 70498; 70551; 71045; 80048; 80053; 80061; 81003; 83036; 83605; 84484; 85025; 85610; 85730; 86850; 86900; 86901; 87641; 93005; 93306; 99285; A9270-GY; J2060; J2997; Q9967

== ENCOUNTER 2018-12-31 19:33 | Observation (INO) | payer BC ==
--- OUTSIDE RECORDS SUMMARY | 2018-12-31 19:54 | XMS REPORT | Summary of Care ---
:1960 Author Organization [facility] Address [address] [facility] [place] [address] Care Team Providers Name Role Phone Armen Stapleton MD Primary Care Provider Reason for Referral Diagnostic Testing (Routine) Status Reason Specialty Diagnoses / Referred By Referred To Procedures Contact Contact Pending Review Diagnoses Ascending aortic aneurysm (HCC) Valarie, Procedures ECHOCARDIOGRAM TTE MD Kemal [address] [place] [address] Reason for Visit Reason Comments Follow Up Pt. in for a 1 Year Follow Up on CVA. Reports Doing well. Encounter Details Date Type Department Care Team Description 12/07/2018 Office Visit [facility] Valarie Cerebrovascular accident (CVA), unspecified mechanism (HCC) (Primary Dx); Cardiology MD Kemal Ascending aortic aneurysm (HCC); [address] [place] [address] [phone] Allergies Active Allergy Reactions Severity Noted Date Comments No Known Allergies Other 09/14/2007 documented as of this encounter (statuses as of 12/07/2018) Medications Medication Sig Dispensed Refills Start Date End Date Status lisinopril (PRINIVIL, Take 1 Tab 90 Tab 1 04/26/2018 Active ZESTRIL) 10 MG Oral by mouth Tab DAILY. atorvastatin Take 1 Tab 90 Tab 1 04/26/2018 Active (LIPITOR) 80 MG Oral by mouth TabIndications: DAILY. Cerebrovascular accident (CVA), unspecified mechanism (HCC) Omeprazole delayed Take 20 mg 90 Cap 1 04/26/2018 Active rel cap 20 MG Oral by mouth CAPSULE DELAYED DAILY. RELEASE celeCOXIB (CELEBREX) Take 1 Cap 90 Cap 1 04/26/2018 Active 200 MG Oral Cap by mouth DAILY NEEDED (pain). atenolol (TENORMIN) TAKE ONE 90 Tab 0 10/27/2018 Active 25 MG Oral TABLET BY TabIndications: MOUTH DAILY Ascending aortic aneurysm (HCC), Essential hypertension Aspirin 81 MG Oral Take 81 mg 0 Active Tab by mouth DAILY. aspirin 325 MG Oral Take 325 mg 0 12/07/2018 Discontinued Tab by mouth DAILY. documented as of this encounter (statuses as of 12/07/2018) Active Problems Problem Noted Date Essential hypertension 12/15/2017 Sensory hearing loss, bilateral 02/21/2014 Deviated nasal septum 02/21/2014 Obesity, unspecified 08/26/2012 Overview: This patient's BMI This patient's BMI has been calculated and is above average, and BMI management plan is completed. General patient education discussion including: weight loss link to reduction of r isk factors for cardiac and other diseases, importance of long-term maintenance treatment in weight loss, and accomplish with exercise as tolerated and diet control Pure hypercholesterolemia 09/07/2007 gerd 09/07/2007 CVA (cerebral vascular accident) documented as of this encounter (statuses as of 12/07/2018) Immunizations Name Administration Dates Next Due Influenza (IM) Preservative Free 12/15/2017 Td 03/04/2005 documented as of this encounter Social History Tobacco Use Types Packs/Day Years Used Date Former Smoker 17 Quit: 04/04/1998 Smokeless Tobacco: Current User Chew Comments: still smoke cigar Alcohol Use Drinks/Week oz/Week Comments Yes 0 Standard drinks or equivalent 0.0 cut down to 1 a day Sex Assigned at Date Recorded Not on file Job Start Date Occupation Industry Not on file Not on file Not on file Travel History Travel Start Travel End No recent travel history available. documented as of this encounter Last Filed Vital Signs Vital Sign Reading Time Taken Comments Blood Pressure 126/80 12/07/2018 3:32 PM EDT Pulse 72 12/07/2018 3:32 PM EDT Temperature - - Respiratory Rate - - Oxygen Saturation - - Inhaled Oxygen Concentration - - Weight 94.3 kg (208 lb) 12/07/2018 3:32 PM EDT Height 162.6 cm (5' 4") 12/07/2018 3:32 PM EDT Body Mass Index 35.7 12/07/2018 3:32 PM EDT documented in this encounter Patient Instructions Patient InstructionsMcKemal Seay MD - 12/07/2018 3:20 PM EDT No medication changes today. Continue to work on doing some regular exercise, weight loss, and a healthy diet. Schedule an echocardiogram sometime in the next couple of months. Wear a monitor for 30 days as we discussed. Follow up with me in 1 year or sooner if needed. documented in this encounter Progress Notes Kemal Sheppard MD - 12/07/2018 3:20 PM EDT Tony Cardiology Note Patient: Aroldo Navarrete Date of : 1960 Date of Service: 12/07/2018 REFERRING PRACTITIONER: Kemal Sheppard PRIMARY CARE PROVIDER: Armen Stapleton Chief Complaint: Chief Complaint Patient presents with Follow Up Pt. in for a 1 Year Follow Up on CVA. Reports Doing well. History of Present Illness: We had the pleasure of seeing Aroldo Navarrete today at the [facility] Office. 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 Mr. Navarrete presents to cardiology clinic today for routine annual f/u. After his last visit I hadordered a 30 day MCOT but his insurance wouldn't cover it so it never got done. He now has new and better insurance. From a symptom standpoint, he reports feeling fairly well. He hasn't been doing alot of exercise but is active around his house and feels good with that. No chest pains/pressure orlimiting dyspnea. Denies any palpitations, lightheadedness, or syncope. No orthopnea, paroxysmal dyspnea, or lower extremity edema. No recurrent neurologic symptoms. Patient Active Problem List Diagnosis Pure hypercholesterolemia gerd Obesity, unspecified Sensory hearing loss, bilateral Deviated nasal septum CVA (cerebral vascular accident) (HCC) Essential hypertension Past Medical History: Diagnosis Date Cerebral infarction involving posterior cerebral artery, left (HCC) CVA (cerebral vascular accident) (HCC) 2018 occipital Deviated nasal septum 02/21/2014 Erectile dysfunction Essential hypertension 12/15/2017 Fatty liver gerd 09/07/2007 EGD 2011 abnormal Hearing problem Hyperlipidemia 09/07/2007 Hyperplastic colon polyp 04/20/11 5 years Tennis elbow Past Surgical History: Procedure Laterality Date DENTAL OPERATION NEC 1974 root canal Allergies Allergen Reactions Nka [No Known Allergies] Other Current Outpatient Medications Medication Sig Aspirin 81 MG Oral Tab Take 81 mg by mouth DAILY. atenolol (TENORMIN) 25 MG Oral Tab TAKE ONE TABLET BY MOUTH DAILY atorvastatin (LIPITOR) 80 MG Oral Tab Take 1 Tab by mouth DAILY. celeCOXIB (CELEBREX) 200 MG Oral Cap Take 1 Cap by mouth DAILY NEEDED (pain). lisinopril (PRINIVIL, ZESTRIL) 10 MG Oral Tab Take 1 Tab by mouth DAILY. Omeprazole delayed rel cap 20 MG Oral CAPSULE DELAYED RELEASE Take 20 mg by mouth DAILY. No current facility-administered medications for this visit. Family History Problem Relation Age of Onset Cancer Father lung Social History Socioeconomic History Marital status: Spouse name: Not on file Number of children: Not on file Years of education: Not on file Highest education level: Not on file Occupational History Not on file Social Needs Financial resource strain: Not on file Food insecurity: Worry: Not on file Inability: Not on file Transportation needs: Medical: Not on file Non-medical: Not on file Tobacco Use Smoking status: Former Smoker Years: 18.00 Last attempt to quit: 04/04/1998 Years since quittin.6 Smokeless tobacco: Current User Types: Chew Tobacco comment: still smoke cigar Substance and Sexual Activity Alcohol use: Yes Alcohol/week: 0.0 standard drinks Comment: cut down to 1 a day Drug use: No Sexual activity: Yes Partners: Female Lifestyle Physical activity: Days per week: Not on file Minutes per session: Not on file Stress: Not on file Relationships Social connections: Talks on phone: Not on file Gets together: Not on file Attends orthodoxy service: Not on file Active member of club or organization: Not on file Attends meetings of clubs or organizations: Not on file Relationship status: Not on file Intimate partner violence: Fear of current or ex partner: Not on file Emotionally abused: Not on file Physically abused: Not on file Forced sexual activity: Not on file Other Topics Concern Not on file Social History Narrative Not on file Review of Systems - Negative except as noted in HPI. Physical Exam: Vitals: 12/07/18 1532 BP: 126/80 BP Location: Left arm Patient Position: Sitting Pulse: 72 Weight: 208 lb (94.3 kg) Height: 5' 4" (1.626 m) Body mass index is 35.7 kg/m. General: Obese, alert 58-y.o. male in NAD HEENT: anicteric, MMM, no E/E OP, conj pink. Poor dentition Neck: JVP approx 5 cm above RA, no carotid bruits or LAD CV: RRR, normal s1/s2, no appreciable murmurs, rubs, or gallops Pulm: CTA bilaterally without wheezes, rhonchi, or rales. No increased work of breathing. Abd: soft, obese, NT, ND, +BS. No appreciable pulsatile masses or bruits. Ext: no lower extremity edema, no cyanosis, no cords, redness, or warmth, 2+ distal pulses Neuro: no gross focal deficits but full exam not performed. Skin: no visible lesions Labs: Lab Results Component Value Date NA 139 01/28/2018 K 4.3 01/28/2018 CL 103 01/28/2018 CO2 26 01/28/2018 GLUCOSE 102 (H) 01/28/2018 BUN 20 01/28/2018 CREATININE 1.0 01/28/2018 CALCIUM 9.0 01/28/2018 TP 6.9 01/28/2018 ALBUMIN 4.1 01/28/2018 AST 32 01/28/2018 ALT 42 01/28/2018 ALK 64 01/28/2018 TBILI 0.7 01/28/2018 EGFR >60 01/28/2018 No results found for: BNP Lab Results Component Value Date CHOL 161 01/28/2018 TRIG 88 01/28/2018 HDL 42 01/28/2018 LDL 101 (H) 01/28/2018 LDLHDLRATIO 2.4 01/28/2018 CHOLHDLRATIO 3.8 01/28/2018 Cardiac Studies: EKG Today (I personally reviewed): NSR in 70s. Normal EKG. 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 ICD-9-CM ICD-10-CM 1. Cerebrovascular accident (CVA), unspecified mechanism (HCC) 434.91 I63.9 AMBULATORY 12 LEAD EKG (GLOBAL) EKG EVENT RECORDER - MCOT 2. Ascending aortic aneurysm (HCC) 441.2 I71.2 ECHOCARDIOGRAM TTE 3. Essential hypertension 401.9 I10 1. CVA: While the most likely reason for his CVA is thrombotic rather than cardioembolic, he also has some risk factors for Afib and I continue to believe that it makes sense to do some longer monitoring to ensure we aren't missing Afib. Cont ASA and statin. I've reordered a 30 day MCOT now that his insurance is better. BP control as below. I again counseled pt briefly on the importance of stopping chewing tobacco. 2. Dilated Ascending Aorta: Mildly dilated by echo at [facility] 11/2017. Goal BP &lt ; 130/80 mmHg. Cont lisinopril and atenolol. Will check another echo, and at some point may get a CTA to image his entire thoracic aorta. Thank you for allowing me to participate in the care of Aroldo Navarrete. We will plan on f/u in our office in 1 year or sooner prn. If you have any questions or concerns please feel free to call our office at . Kemal Sheppard MD, 12/07/2018, 15:52 This note was created using my previous note as a template; changes were made where appropriate, andall information in the current note is up to date to the best of my knowledge.Electronically signed by Kemal Sheppard MD at 2018 3:53 PM EDTdocumented in this encounter Plan of Treatment Date Type Specialty Care Team Description 02/05/2019 Office Visit Family [facility] Armen Stapleton MD [address] [place] [address] [phone] Name Type Priority Associated Diagnoses Order Schedule ECHOCARDIOGRAM TTE CV Lab Routine Ascending aortic aneurysm Expected: (HCC) 12/07/2018 (Approximate), Expires: 01/11/2020 AMBULATORY 12 LEAD EKG EKG Routine Cerebrovascular accident Ordered: (GLOBAL) (CVA), unspecified 12/07/2018 mechanism (HCC) EKG EVENT RECORDER - MCOT EKG Routine Cerebrovascular accident Ordered: (CVA), unspecified 12/07/2018 mechanism (HCC) Health Maintenance Due Date Last Done Comments DEPRESSION SCREENING 1971 ZOSTER IMMUNIZATION SERIES 11/26/2009 (1 of 2) COLONOSCOPY SCREENING 04/20/2016 04/20/2011 INFLUENZA VACCINE (#1) 2018 12/15/2017 DIABETES SCREENING 01/28/2019 01/28/2018, 07/30/2017, 12/02/2016, Additional history exists LIPID DISORDER SCREENING 04/26/2019 04/26/2018, 01/28/2018, 07/30/2017, Additional history exists HPV IMMUNIZATION SERIES Aged Out No longer eligible based on patient's age to complete this topic MENINGOCOCCAL VACCINE IMM Aged Out No longer eligible based on patient's age to complete this topic PNEUMOCOCCAL 0-64 YRS Aged Out No longer eligible based on patient's age to complete this topic documented as of this encounter Goals Goal Patient Goal Associated Recent Patient-Stated? Author Type Problems Progress Blood Pressure Blood Pressure 126/80 No Pieter, < 140/90 (12/07/2018 MD Armen 3:32 PM EDT) Note: This is an individualized treatment (blood pressure) goal for Aroldo Navarrete: Displayed above (on the left) is your goal for blood pressure control. Your most recent blood pressure is also shown above, on the right. You should try to achieve blood pressures that are lower than your goal listed above (on the left). Unit - lb < 180 Result Component No Armen Stapleton MD Take all prescribed medications as directed Self-management Armen Giles MD Note: This is an individualized self-management goal for Aroldo Navarrete: Please take all prescribed medications as directed. 1. Do not skip doses. If you cannot afford your medications, talk with your doctor. 2. Use a pill reminder system such as a pill box if needed. Your pharmacist can help you with this. 3. Contact your Pharmacy 5 days before your medication runs out. If you cannot take your medications for any reasons, talk with your doctor. 4. Please bring all of your medication bottles and inhalers (or a list of all your medications/inhalers) with you to every visit. Potential barriers to meeting all of your care plan goals will continue to be addressed on an ongoing basis. documented as of this encounter Results Not on filedocumented in this encounter Visit Diagnoses Diagnosis Cerebrovascular accident (CVA), unspecified mechanism (HCC) - Primary Ascending aortic aneurysm (HCC) Thoracic aneurysm without mention of rupture Essential hypertension Unspecified essential hypertension documented in this encounter
[2018-12-31] MEDS ORDERED: NS 0.9% 1000 ML** 1,000 ML IV ONE (20:03)
--- NOTE | 2018-12-31 20:06 | ED ---
Neurological HPI - HPI Summary HPI Summary: The pt is a 58 yr old male presenting to [facility] via private car with sudden onset blurry vision left eye, left facial numbness and left arm numbness at 1850 today, while lying on the couch with his . Pt's states that while lying on the couch, pt sat up suddenly and stated "I don't feel right". He notes that earlier today he started feeling some pain under his left arm with "coldness". He then began to feel irritation in his left eye that began to hurt after rubbing it. He notes that his teeth also felt weird. The pt had no trouble with his speech or finding his words, no visual field cut, no motor weakness. His suggested that he take a shower to get rid of the symptoms, but they still persisted even after taking the shower so pt presented to the ED. In Nov 2017 pt had a peripheral vision field cut in his right eye and received TPA, and was DC'd home with an NIH zero. An occipital stroke showed on pt's MRI. Pt did not have a PFO, and on CTA he did not have critical carotid artery stenosis. Pt remains in sinus rhythm and has never been noted in afib. Pt did see a crew chief but a loop recorder has not been done at this time. Pt and his were concerned that he might be having another stroke so they presented to the ED now. Pt notes that he also started to get a little nervous by coming to the ED. He rates his current pain intensity due to his left arm and left eye a 4/10. No aggravating or alleviating factors noted. Pt takes ASA 81mg daily. He no longer takes Plavix. He takes atorvastatin 80mg, lisinopril 10mg daily and omeprazole. Jovanna Marley was called at 2001 and pt was taken directly to [facility]. [facility] telestroke consult initiated. Allergies Allergy/AdvReac Type Severity Reaction Status Date / Time No Known Allergies Allergy Verified 04/19/15 11:59 Home Medications Medication Instructions Recorded Confirmed Type Lisinopril TAB* [Prinivil TAB 10 10 mg PO DAILY 11/08/17 11/08/17 History MG*] Omeprazole CAP (NF) [Prilosec CAP* 20 mg PO DAILY 11/08/17 11/08/17 History 20 MG] Aspirin [Adult Aspirin Regimen] 81 mg PO DAILY #30 tablet. 11/09/17 Rx Atorvastatin* [Lipitor 80 MG*] 80 mg PO 1700 #30 tab 11/09/17 Rx Clopidogrel TAB* [Plavix TAB*] 75 mg PO DAILY #30 tab 11/09/17 Rx - History of Current Complaint Chief Complaint: EDNeurologicalDeficit Stated Complaint: TINGLING IN LT ARM PER PT Time Seen by Provider: 12/31/18 19:46 Hx Obtained From: Patient, Family/Position Classifier - , Medical Records - [facility] 11/2017 Onset/Duration: Sudden Onset, Started hours ago, Still Present Timing: Constant Onset Severity: Moderate Current Severity: Moderate Neurological Deficit Location: Facial - numbness, LUE - tingling Pain Intensity: 4 - Left arm and left eye Pain Scale Used: 0-10 Numeric Character: Numbness/Tingling - facial and left arm/fingers, Visual Changes - blurry vision, left eye pain Aggravating: Nothing Alleviating: Nothing Associated Signs and Symptoms: Positive: Visual Changes - blurry vision, Numbness - facial, and left arm (fingers) tingling, Neck Pain/Stiffness - left neck stiffness, Anxiety - per pt, has "white coat" HTN and anxiety in the ER TPA Considered: No - discussed with Dr. Martell, telestroke neurologist, NIH low ( 1) Related Hx: ASA - 81mg, prior occipital stroke 11/19 (opposite eye of current sxs ) - Additional Pertinent History Primary Care Physician: SHIRA - Allergy/Home Medications Allergies/Adverse Reactions: Allergies Allergy/AdvReac Type Severity Reaction Status Date / Time No Known Allergies Allergy Verified 04/19/15 11:59 Home Medications: Home Medications Atenolol 25 mg PO DAILY 12/31/18 [History Confirmed 12/31/18] PMH/Surg Hx/FS Hx/Imm Hx Previously Healthy: No Endocrine/Hematology History: Denies: Hx Diabetes, Hx Thyroid Disease Cardiovascular History: Reports: Hx Hypercholesterolemia, Hx Hypertension Denies: Hx Pacemaker/ICD Respiratory History: Denies: Hx Asthma, Hx Chronic Obstructive Pulmonary Disease (COPD) GI History: Reports: Hx Gastroesophageal Reflux Disease Denies: Hx Ulcer Musculoskeletal History: Reports: Hx Arthritis - in hands Sensory History: Reports: Hx Contacts or Glasses, Hx Hearing Problem Denies: Hx Cataracts, Hx Eye Injury, Hx Eye Prosthesis, Hx Glaucoma, Hx Legally Blind, Hx Macular Degeneration, Hx Vision Problem, Hx Hearing Aid, Other Sensory Impairments Opthamlomology History: Reports: Hx Contacts or Glasses Denies: Hx Cataracts, Hx Eye Injury, Hx Eye Prosthesis, Hx Glaucoma, Hx Legally Blind, Hx Macular Degeneration, Hx Vision Problem, Other Sensory Impairments Neurological History: Reports: Hx CVA - left occipital, 11/2017, given TPA, no residual deficit, NIH 0 at time of DC Psychiatric History: Denies: Hx Anxiety, Hx Attention Deficit Hyperactivity Disorder, Hx Eating Disorder, Hx Depression, Hx Panic Disorder, Hx Post Traumatic Stress Disorder, Hx Inpatient Treatment, Hx Community Mental Health Tx, Hx Schizophrenia, Hx Bipolar Disorder, Hx Suicide Attempt, Hx of Violent Episodes Against Others, Other Psychiatric Issues/Disorders - Surgical History Surgical History: None Infectious Disease History: No Infectious Disease History: Denies: Hx Hepatitis, Hx Human Immunodeficiency Virus (HIV), Traveled Outside the [place] in Last 30 Days - Family History Known Family History: Positive: Hypertension, Diabetes, Other - HLD Negative: Renal Disease, Respiratory Disease, Seizure Disorder - Social History Lives: With Family Alcohol Use: Daily Alcohol Amount: 2-3 beers Substance Use Type: Reports: None Smoking Status (MU): Former Smoker Amount Used/How Often: 1 tin every 2 days Length of Time of Smoking/Using Tobacco: 36 Have You Smoked in the Last Year: No Review of Systems Constitutional: Negative Eyes: Other - pos - left eye irritation Positive: Blurred Vision Cardiovascular: Negative Respiratory: Negative Gastrointestinal: Negative Positive: no symptoms reported Musculoskeletal: Other - pos - left arm pain and numbness Skin: Negative Neurological: Other - pos - tingling in bilateral fingers Positive: Numbness - left facial Positive: Anxious - pt states he is anxious and also states pt is nervous All Other Systems Reviewed And Are Negative: Yes Physical Exam - Summary Physical Exam Summary: Appearance: well-appearing, minimal pain distress due to left arm, well- nourished Skin: Warm, color reflects adequate perfusion, dry Head: Normal Head/Face inspection, atraumatic Eyes: Conjunctiva clear, PERRL, EOMI, no nystagmus, visual blood normal by confrontation ENT: Normal inspection Neck: Supple, no nodes, no JVD, no bruits Respiratory: Lungs clear, normal breath sounds, no respiratory distress Cardio: RRR, No murmur, pulses normal, brisk capillary refill Abdomen: Soft, nontender Bowel sounds: Present Musculoskeletal: Strength Intact/ROM intact, no calf tenderness, no edema. Psychological: Normal Neuro: Alert, muscle tone normal, no focal deficit, GCS of 15 (See Scale), NIH 1 (See scale) for left facial numbness Triage Information Reviewed: Yes Vital Signs On Initial Exam: Initial Vitals Temp Pulse Resp BP Pulse Ox 98.9 F 104 18 176/105 94 12/31/18 19:36 12/31/18 19:36 12/31/18 19:36 12/31/18 19:36 12/31/18 19:36 Vital Signs Reviewed: Yes - Genny Coma Scale Best Eye Response: 4 - Spontaneous Best Motor Response: 6 - Obeys Commands Best Verbal Response: 5 - Oriented Coma Scale Total: 15 Diagnostics - Vital Signs Vital Signs Temp Pulse Resp BP Pulse Ox 12/31/18 19:36 98.9 F 104 18 176/105 94 - Laboratory Result Diagrams: 12/31/18 20:13 12/31/18 20:13 Lab Statement: Any lab studies that have been ordered have been reviewed, and results considered in the medical decision making process. - Radiology CXR Radiology Interpretation Completed By: ED Physician Summary of Radiographic Findings: No acute processes, pending official report. - CT Brain CT CT Interpretation Completed By: Radiologist Summary of CT Findings: IMPRESSION: No acute intracranial abnormality. ED Physician has reviewed this report. - EKG 1939 Cardiac Rate: NL EKG Rhythm: Sinus Rhythm - [address] Segment: Non-Specific Ectopy: None EKG Comparison: No Significant Change - c/w 11/09/17 Summary of EKG Findings: NSR @ 97 bpm. Normal EKG. 2022 Cardiac Rate: NL EKG Rhythm: Sinus Rhythm - [address] Segment: Non-Specific Ectopy: None EKG Comparison: No Significant Change Summary of EKG Findings: NSR @ 96 bpm. Normal EKG. NIH Scale - NIH Scale Level of Consciousness: Alert/Keenly Responsive Ask Patient the Month and His/Her Age: Both Correct Ask Pt to Open/Close Eyes and Emergency Care Tech/Release Non-Paretic Hand: Both Correctly Best Gaze (Only Horizontal Eye Movement): Normal Visual Field Testing: No Visual Loss Facial Paresis-Pt to Smile & Close Eyes or Grimace Symmetry: Normal/Symmetrical Motor Function - Right Arm: No Drift-Holds 10 Seconds Motor Function - Left Arm: No Drift-Holds 10 Seconds Motor Function - Right Leg: No Drift-Holds 10 Seconds Motor Function - Left Leg: No Drift-Holds 10 Seconds Limb Ataxia-Must be out of Proportion to Weakness Present: Absent Sensory (Use Pinprick to Test Arms/Legs/Trunk/Face): Pinprick Less on Affected Best Language (Describe Picture, Name Items): No Aphasia Dysarthria (Read Several Words): Normal Extinction and Inattention: No Abnormality Total Score: 1 Re-Evaluation - Re-Evaluation First Eval Re-Evaluation Time: 20:40 Change: Unchanged Comment: Pt and advised of Ros aguillon R Jp telestroke advice for no TPA, admission. and pt agree with plan. Pt with no new sxs. BP 159 systolic Second Eval Re-Evaluation Time: 22:00 Change: Improved Comment: Advised that cardiac labs and other labs are unremarkable. Plan for admission. is not present in room at this time. Pt states his left facial numbness has resolved. States he has no other symptoms at this time and feels back to normal. Course/Dx - Course Course Of Treatment: The pt is a 58 yr old male with hx left occipital stroke with visual field cut 11/2017 given TPA and NIH zero at [place], presenting to [facility] via private car with c/o left eye irritation and blurry vision, left facial numbness, left arm pain and left arm and left fingers tingling with last known well at 1850 because was lying on couch with pt when he stated he didn't feel well. Jovanna Marley was called. Initial NIH=1 for left facial numbness. CT brain with no acute abnormalities. Aspects score of 10. CT report was noted in the computer at 2025, not formally called until 2055. Dr. Martell consulted @ 2019 via phone and case presented including past hx occipital stroke 11/[address] Martell did not recommend formal ipad telestroke evaluation with Dr. Martell repeating the exam, given my history and exam and NIH of one. He advises that pt is not a TPA candidate due to low NIH and a nondisabling neurodeficit. He still recommends admission and further evaluation for stroke. EKG @ 1940 reveals NSR @ 97 bpm, normal EKG. 2022 reveals NSR @ 96 bpm, normal EKG. A CXR reveals no acute processes, pending official report. Labs including troponin were unremarkable. Final Dx is facial numbness, history of left occipital stroke, hypertension in poor control. Dr. Black will admit the pt to [facility]. Pt and his are agreeable with this plan. - Differential Dx Differential Diagnoses Neuro: Positive: Anxiety, Cerebrovascular Accident, Coronary Artery Disease, Intracranial Bleed, Transient Ischemic Attack - Diagnoses Provider Diagnoses: Facial numbness, History of stroke without residual deficits, Hypertension, poor control During the Visit The Following Alert/Code Occurred: Jovanna Begum - telestroke consult, Dr. Martell - Physician Notifications Discussed Care Of Patient With: Lucy Black - Dr. Black will admit pt to [facility]. Time Discussed With Above Provider: 22:35 Instructed by Provider To: Admit As Observation - Critical Care Time Critical Care Time: 30-74 min - 30 mins Discharge ED - Sign-Out/Discharge Documenting (check all that apply): Patient Departure - admit All imaging exams completed and their final reports reviewed: No Patient Received Moderate/Deep Sedation with Procedure: No - Discharge Plan Condition: Stable Disposition: ADMITTED TO [facility] - Billing Disposition and Condition Condition: STABLE Disposition: Admitted to [facility] - Attestation Statements Document Initiated by Derrek: Yes Documenting Scribe: Jaime Chin Provider For Whom Derrek is Documenting (Include Credential): Nikki Duncan MD Scribe Attestation: Jaime Almonte, scribed for Nikki Duncan MD on 01/01/19 at 0228. Scribe Documentation Reviewed: Yes Provider Attestation: The documentation as recorded by the deniseibJaime jeong accurately reflects the service I personally performed and the decisions made by me, Nikki Duncan MD Status of Scribe Document: Viewed
[2018-12-31 20:23] LABS: ABS Basophils 0.1 10^3/ul (0-0.2); ABS Eosinophils 0.1 10^3/ul (0-0.6); ABS Lymphocytes 1.2 10^3/ul (1.0-4.8); ABS Monocytes 0.5 10^3/ul (0-0.8); ABS Neutrophils 4.4 10^3/ul (1.5-7.7); Hematocrit 41 % (42-52); Hemoglobin 14.2 g/dL (14.0-18.0); Lymphocyte % 19.6 %; Mean Corpuscular HGB Conc 34 g/dL (31-36); Mean Corpuscular Hemoglobin 30 pg (27-31); Mean Corpuscular Volume 88 fL (80-94); Mean Platelet Volume 8.2 fL (7.4-10.4); Nucleated Red Blood Cells % 0.1; Platelet Count 257 10^3/uL (150-450); Red Blood Count 4.69 10^6 /uL (4.18-5.48); Red Cell Distribution Width 14 % (10-15); White Blood Count 6.2 10^3/uL (3.5-10.8)
[2018-12-31 20:31] LABS: Activated Partial Thrombo Time 31.7 seconds (26.0-38.0); INR 0.87 (0.82-1.09)
[2018-12-31 20:44] LABS: Albumin 4.3 g/dL (3.2-5.2); Albumin/Globulin Ratio 1.7 (1-3); BUN/Creatinine Ratio 14.7 (8-20); EGFR Non-African American 64.4 (>60); Globulin 2.5 g/dL (2-4); Potassium 3.6 mmol/L (3.5-5.0); Total Bilirubin 0.4 mg/dL (0.2-1.0); Total Protein 6.8 g/dL (6.4-8.9)
[2018-12-31] MEDS ORDERED: Acetaminophen TAB* 325 MG PO PRN (22:43)
[2018-12-31] MEDS ORDERED: Al Hydrox/Mg Hydrox/Simet LIQ* 30 ML UDC PO PRN (22:43)
[2018-12-31] MEDS ORDERED: Iohexol 350* (CONTRAST) 500 ML MDV IV ONE (23:39)
--- NOTE | 2019-01-01 00:12 | HP ---
CC: Dr. Stapleton * HISTORY AND PHYSICAL: DATE OF ADMISSION: 12/31/18 PRIMARY CARE PROVIDER: Dr. Stapleton. CHIEF COMPLAINT: Numbness of the left face and left hand. HISTORY OF PRESENT ILLNESS: Aroldo Navarrete is a 58-year-old male with history of occipital CVA diagnosed in November of 2017 who presented to the hospital after he was noted to have left-sided numbness. The patient stated that at approximately 7:10 p.m. he was sitting on the couch with his and he felt that his left eye was itching. Subsequently, he felt that the lower part of his face on the left was numb and his fingers tips were numb. He denied any other neurological deficits. The numbness lasted approximately an hour, and when he came into the emergency department, he was evaluated with an NIH scale of 1 due to the numbness. The telestroke team was called, but not officially consulted as per Dr. Duncan in the ED. By the time he was evaluated by myself, his NIH score is 0. He is back to normal. His symptoms overall lasted an hour. He is going to be placed on overnight observation with a diagnosis of TIA. PAST MEDICAL HISTORY: 1. History of a left occipital CVA in 2018 resulting in right eye visual loss that did resolve and the patient now has no residual deficits. 2. History of hypertension. 3. Dyslipidemia. 4. Gastroesophageal reflux disease. 5. Arthritis. PAST SURGICAL HISTORY: None. CURRENT MEDICATIONS: 1. Aspirin 81 mg daily. 2. Lisinopril 10 mg daily. 3. Omeprazole 20 mg daily. 4. Lipitor 80 mg daily. 5. Atenolol 25 mg daily. ALLERGIES: No known drug allergies. FAMILY HISTORY: Positive for father who secondary to lung cancer and mother with history of hypertension. SOCIAL HISTORY: The patient quit smoking over 20 years ago. He denies any drug use. He drinks 2 beers a night. 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 He is a full code. REVIEW OF SYSTEMS: Please see history of present illness. All the remaining 12 systems were reviewed with the patient and were otherwise negative. PHYSICAL EXAMINATION GENERAL: The patient is a pleasant 58-year-old male who is in no acute distress. Alert, awake, and oriented x3. VITAL SIGNS: Blood pressure of 136/82, heart rate of 64 and regular, respiratory rate of 14, oxygen saturation 95% on room air, temperature of 98.9. HEENT: Head atraumatic and normocephalic. Eyes: Pupils are equal, round, and reactive to light and accommodation. Oropharynx clear. Mucosa moist. NECK: Supple. No JVD. No bruits bilaterally. RESPIRATORY: Clear to auscultation bilaterally. CARDIOVASCULAR: Regular rate and rhythm. No murmur. ABDOMEN: Soft and nontender. Bowel sounds present in all 4 quadrants. EXTREMITIES: There is no edema. Pulses are +2 bilaterally. No clubbing or cyanosis. NEUROLOGIC EVALUATION: Speech clear. Cranial nerves II through XII grossly intact. Motor strength is 5/5 bilaterally. Sensation is grossly intact. Finger- to-nose is not dysmetric. Babinski's are negative bilaterally. DIAGNOSTIC STUDIES/LAB DATA: Laboratory data showed sodium of 138, potassium 3.6, chloride 105, carbon dioxide 24, BUN 17, and creatinine of 1.16. Liver function tests unremarkable. Troponin of 0. White blood cell count of 6.2, hemoglobin of 14.2, hematocrit of 41, and platelets of 256. The patient's EKG is pending at the time of dictation. Portable chest x-ray read by myself prior to the official radiologist report shows poor inspiration and no gross evidence of cardiopulmonary abnormalities. ASSESSMENT AND PLAN: 1. In regards to the patient's transient ischemic attack, he is going to be placed on overnight observation with neuro checks every [address] the patient on aspirin, and in addition to that, we will add on Plavix. He is going to be continued on his atorvastatin. His antihypertensive medications are going to be held to allow hypertensive response. An MRI of the brain as well as CT angiogram of the head and neck are going to be obtained in the morning. Neurology is going to be consulted in the morning. 2. In regards to the patient's hypertension, as mentioned above, his blood pressure medications are going to be held. 3. For DVT prophylaxis. The patient is at low risk and ambulation is going to be encouraged. 4. The patient's code status is full. His surrogate is his . TIME SPENT: Approximately 60 minutes was spent on admission of this patient, more than half that time was spent [id number] with the patient during the interview and physical exam. [id number]/[facility] #: [id number] [facility]
[2019-01-01] MEDS: Clopidogrel TAB* 75 MG PO SCH ×2 (00:18→07:38)
[2019-01-01 06:31] LABS: ABS Eosinophils 0.1 10^3/ul (0-0.6); ABS Lymphocytes 1.9 10^3/ul (1.0-4.8); ABS Monocytes 0.6 10^3/ul (0-0.8); ABS Neutrophils 4.2 10^3/ul (1.5-7.7); Eosinophil % 1.8 %; Hematocrit 39 % (42-52); Hemoglobin 13.3 g/dL (14.0-18.0); Lymphocyte % 27.5 %; Mean Corpuscular HGB Conc 34 g/dL (31-36); Mean Corpuscular Hemoglobin 31 pg (27-31); Mean Corpuscular Volume 89 fL (80-94); Mean Platelet Volume 8.2 fL (7.4-10.4); Platelet Count 232 10^3/uL (150-450); Red Blood Count 4.36 10^6 /uL (4.18-5.48); Red Cell Distribution Width 14 % (10-15); White Blood Count 6.8 10^3/uL (3.5-10.8)
[2019-01-01 06:48] LABS: BUN/Creatinine Ratio 12.5 (8-20); Calcium 8.6 mg/dL (8.6-10.3); EGFR African American 88.4 (>60); EGFR Non-African American 73.1 (>60); Potassium 3.7 mmol/L (3.5-5.0)
[2019-01-01] MEDS ORDERED: Pantoprazole TAB * 40 MG TAB PO SCH (09:00)
[2019-01-01] MEDS ORDERED: Aspirin EC TAB* 81 MG TAB.EC PO SCH (09:00)
[2019-01-01] MEDS ORDERED: Lorazepam PYXIS KEY PRN ×2 (10:35→12:56)
[2019-01-01] MEDS ORDERED: LORazepam INJ* 2 MG/ML 1 ML VIAL IV PUSH ONE ×2 (10:35→12:56)
[2019-01-01 11:36] VITALS: BP 128/63
[2019-01-01 12:53] LABS: Urine Appearance Clear; Urine Bilirubin Negative (Negative); Urine Blood Negative (Negative); Urine Color Yellow; Urine Glucose Negative (Negative); Urine Ketones Negative (Negative); Urine Nitrite Negative (Negative); Urine Protein Negative (Negative); Urine Specific Gravity 1.017 (1.010-1.030); Urine Urobilinogen Negative (Negative)
--- NOTE | 2019-01-01 13:29 | CONS ---
NEUROLOGY CONSULTATION NOTE: DATE OF CONSULT: 01/01/19 CONSULTING PROVIDER: ELVIN Acosta REASON FOR CONSULT: Numbness of the left face and arm. CHIEF COMPLAINT: Sudden onset numbness on the left side of the body. HISTORY OF PRESENT ILLNESS: Mr. 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 The patient was lying on the couch and was taking a nap. He suddenly woke up and noticed that his left face , teeth, and left side of the hand and arm were numb. This lasted for 1-2 hours. The onset was at 6:30 P.M. on 12/31/18. He denied any neck pain. He denied any dysarthria. The symptoms gradually went away. The patient has been compliant with aspirin and atorvastatin. He denied any tobacco use. The patient has been complaining of episodic tachycardia and palpitations. NIH stroke scale was 0 today. [facility] telestroke service was contacted via telephone, but no official consult was reportedly done. The patient had a brain CT of the head that was completed on 12/31/18 that showed no acute intracranial abnormality. A CTA completed on 12/31/18 showed no acute large vessel occlusion. I reviewed an MRI of the brain that was completed in November 2017 that showed a left occipital lobe cortical infarction. I also reviewed a transthoracic echo completed on 11/08/17 that reported normal left atrial chamber size. There was no patent foramen ovale demonstrated. There was moderate dilatation of the ascending aorta. The ejection fraction was 55% to 60%. Please note that the patient was recently evaluated by his PCP and Cardiology. I do not have any information in [facility]. The patient is getting a poiser device to evaluate for arrhythmia. PAST MEDICAL HISTORY: As stated in the HPI. MEDICATIONS: 1. Aspirin 81 mg daily. 2. Atorvastatin 80 mg nightly. 3. Atenolol 25 mg p.o. daily. 4. Omeprazole 20 mg p.o. daily. 5. Lisinopril 10 mg p.o. daily. ALLERGIES: No known drug allergies. FAMILY HISTORY: No family history of stroke or seizures. 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 He denied any tobacco use. He drinks 2 cans of beer a week. He is . REVIEW OF SYSTEMS: A 14-point review of systems was obtained and otherwise negative except for what was mentioned in the HPI. Positive for snoring and day time fatigue. PHYSICAL EXAM: Vitals: Temperature of 97.7, pulse of 73, respiratory rate of 17, oxygen saturation of 93%, blood pressure of 140/75. General: Well- nourished, well- developed man, in no acute distress. Head is atraumatic, normocephalic without any obvious abnormalities. Neck is supple and symmetrical with no carotid bruits. Eyes: Conjunctivae/corneas are clear. Cardiovascular: Regular rate and rhythm with normal S1, S2. Chest: Clear to auscultation bilaterally with no wheezing or rhonchi. Extremities: Normal range of motion with no cyanosis or hammertoes. Skin: No skin lesions or lacerations. Psych: Affect is broad. Normal mood. Easy to establish rapport. Neurological Examination: Mental Status: Awake, alert, oriented to person, place, time, and general circumstances. Speech and language including repetition, comprehension, and fluency were assessed and found to be normal. Cranial Nerves: Pupils equal, round, and reactive to light, extraocular muscles are intact. There is no facial asymmetry. Sensation is intact on the face bilaterally, no tongue deviation. Motor examination: Motor strength 5/5 strength bilaterally and symmetrically. Normal tone and bulk throughout. Reflexes 2+ in the biceps, triceps, brachioradialis, and knees bilaterally. 1+ at the ankles bilaterally. Sensation is intact to light touch and pinprick throughout. Normal vibration at the toes bilaterally. Coordination: Normal [id number] and ejog-xp-[id number] testing. Gait: Normal stance and gait. No ataxia. LABS, IMAGING AND OTHER DIAGNOSTIC TESTING: WBC of 6.8, hemoglobin of 13.3 hematocrit of 39, platelet function of 232. Sodium of 138, potassium of 3.7, chloride of 105, C-reactive protein 1.04, glucose of 101. Hemoglobin A1c 5.8. LDL is 78, total cholesterol is 174. ASSESSMENT AND RECOMMENDATIONS: Mr. Aroldo Navarrete is a 58-year-old man with a history of hypertension, dyslipidemia, left occipital lobe ischemic infarction, which appears to be embolic in nature, who presented with a transient episode of left-sided hemianesthesia involving the left face and mostly the left upper distal extremity. 1. Acute onset left hemiparesthesia - I suspect this is related to a transient ischemic attack involving the right MCA vascular territory mostly cortically involving the homunculus of the face and hand. A small embolic stroke that is asymptomatic, cannot be entirely excluded. Etiology is unclear. The patient has a history of palpitation and is currently being worked up for possible cardiac arrhythmia. He is going to have a cardiac monitoring device placed, according to the patient, within the next few weeks. Recommendations: I recommend dual antiplatelet therapy for 21 days. Discontinue aspirin after 21 days and continue Plavix 75 mg daily. Continue atorvastatin 80 mg nightly. If his LDL level is still above 70, then I would recommend adding Zetia to his current regimen. Please follow up with the cholesterol level in 3 months. MRI of the brain without contrast is pending. PT /OT/KING MAKER are not needed at this time since the patient is asymptomatic. Please continue PCDs for VTE prophylaxis. If the patient is discovered to have atrial fibrillation or atrial flutter, then discontinue all antiplatelet therapy and start Eliquis 5 mg twice daily. Furthermore, his risk of atrial arrhythmias is high since he does have symptoms to suggest underlying obstructive sleep apnea. Please obtain an outpatient polysomnography testing to evaluate for obstructive sleep apnea. 2. Hypertension. Aggressive management of his blood pressure with blood pressure goal of less than 130/80. 3. Dyslipidemia. LDL is elevated at 78. Discuss with your primary care doctor about the addition of Zetia to control your LDL level and decrease it to less than 70. Depending on the MRI results, the patient will be able to be discharged today. We did not repeat a transthoracic echo since the patient has an ECHO from last year. 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 He would benefit from a loop recorder to monitor for afib. The patient is afebrile with no signs of any infection to suspect endocarditis. Follow-up with neurology at [facility] in 6-8 weeks. [id number]/[facility] #: [id number] MTDD
--- NOTE | 2019-01-01 16:10 | DS ---
CC: Dr. Stapleton; Dr. Sheppard * DISCHARGE SUMMARY: DATE OF ADMISSION: 12/31/18 DATE OF DISCHARGE: 01/01/19 PRIMARY CARE PROVIDER: Dr. Stapleton. PREP PERSON: Dr. Sheppard. ATTENDING PHYSICIAN: Dr. Faria * (dictated by ELVIN Mccall). PRIMARY DIAGNOSES: Left facial numbness, left hand numbness, probable transient ischemic attack. SECONDARY DIAGNOSES: 1. Cerebrovascular accident in 2018 with right vision loss, which resolved status post tPA. 2. Hypertension. 3. Hyperlipidemia. 4. Gastroesophageal reflux disease. STUDIES WHILE IN THE HOSPITAL: 1. CT brain without, impression: No acute intracranial abnormalities. 2. CTA head and neck, impression: No acute findings. No hemodynamically significant narrowing of the cervical or vertebral arteries. 3. MRI brain, impression: Scattered nonspecific white matter changes. No restricted diffusion to suggest acute infarct. CONSULTATIONS WHILE IN THE HOSPITAL: Neurology, recommendations: Depending on MRI results, the patient will be discharged today, did not need repeat transthoracic echo since the patient is being currently evaluated by PCP as well as Cardiology outpatient. 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 Echo with negative bubble study, November 2017, therefore no need to repeat at this time. The patient afebrile, no signs of infection to suspect endocarditis. DISCHARGE MEDICATIONS: Home medications: 1. Aspirin 81 mg p.o. daily. 2. Atenolol 25 mg p.o. daily. 3. Atorvastatin 80 mg p.o. at bedtime. 4. Lisinopril 10 mg p.o. daily. New home medications: 1. Clopidogrel 75 mg p.o. daily. 2. Ezetimibe 10 mg p.o. at bedtime. 3. Pantoprazole 40 mg p.o. daily. Discontinued home medications: Omeprazole. HISTORY OF PRESENT ILLNESS/HOSPITAL COURSE: Mr. Navarrete is a 58-year-old male with a past medical history of CVA in 2018 for which he received tPA, hypertension, hyperlipidemia, who presented to the ER on 12/31/18 with complaints of left face, left hand numbness. For full and complete details, please see the history and physical dictated by Lucy Black MD, but in short , the patient presents with these symptoms. He denied any other neurological deficits. Symptoms lasted approximately 1 hour. NIH scale 1 due to numbness. By the time he was evaluated by hospitalist provider, NIH scale was 0. CT of the head was performed and was within normal limits. He was placed on telemetry overnight and he was normal sinus rhythm overnight. Head and neck CTA were performed and showed no acute abnormalities. Brain MRI was performed and showed no suggestion of acute infarct. The patient was noted to have an echo with bubble study in November 2017. Bubble study was negative, EF 55% to 60% . Neurology was consulted during the patient's stay. They recommended dual- antiplatelet therapy for 21 days, then discontinuation of aspirin and continuation of clopidogrel. The patient is currently working with his primary care provider and intensive care medicine specialist for event monitor placement. It was suggested that he get this done as soon as possible. He notes he will follow up with his primary care provider and intensive care medicine specialist tomorrow morning to discuss placement. The patient also has some evidence of sleep apnea. His states that he stops breathing at night at times. Suggestions were made that he receive outpatient polysomnography. He will be continued on atorvastatin 80. His LDL was 87. He will start Zetia. Hemoglobin A1c was 5.8. At this time, the patient is stable for discharge. He denies dizziness, lightheadedness, vision changes, neurological deficit, dysphagia, dysarthria. He denies chest pain, shortness of breath, cough, fever, chills, abdominal pain, nausea, vomiting, diarrhea, constipation, myalgias, arthralgias. Mr. Navarrete will be discharged home. PHYSICAL EXAMINATION: Vital Signs: Temperature 98.1 temporal , heart rate 63, respiratory rate 16, oxygen saturation 94% on room air, blood pressure 128/63. General: Mr. Navarrete is a well-developed, well-nourished, obese, middle-aged white male who is sitting up in bed. He appears to be in no acute distress. He is somewhat drowsy and has recently received Ativan for MRI, but he is awake throughout our conversation and cooperative and appropriate. HEENT: PERRL. EOMI. Nonicteric sclerae. Hearing is grossly intact. Oral mucous membranes are moist. There are no lesions. The pharynx is clear. The tongue is at midline. Palate elevates symmetrically. Cardiovascular: Regular rate and rhythm with S1, S2 present without murmurs, rubs, clicks or gallops. There is no JVD. There is no peripheral edema. Pulmonary: Symmetrical chest expansion without use of accessory muscles. Lungs clear to auscultation bilaterally without rhonchi, wheezes, or rubs. There is no digital clubbing or cyanosis. Abdomen: Obese, bowel sounds in all quadrants. The abdomen is soft. There is no tenderness to palpation. Musculoskeletal: Full range of motion without pain or deformities. Neuro: The patient is awake, he is alert and oriented x3 with cranial nerves grossly intact. He is able to move all of his extremities with a motor strength 5/5 in bilateral upper and lower extremities. Symmetrical trade clerk strength. DISCHARGE PLAN: Mr. Navarrete will be discharged to home. DIET: Heart healthy. CONDITION: Good. ACTIVITY: As tolerated. MEDICATIONS: 1. Continue aspirin and Plavix for 21 days, then discontinue aspirin and continue Plavix. 2. Start Zetia. 3. Discontinue omeprazole and replace with pantoprazole. 4. Continue atorvastatin 80 at bedtime. EDUCATION: 1. Follow up with primary care provider as scheduled on 01/11/19 at 1500. Discuss recent hospitalization referral for outpatient sleep study, placement of event monitor. 2. Follow up with Cardiology for loop/event monitor/Holter monitor. 3. Repeat lipids in 3 months. 4. Return to the ER or nearest hospital if you experience any return of symptoms, chest discomfort, dizziness, lightheadedness, loss of consciousness, weakness in any extremity, vision changes, high fevers, chills, night sweats, or any other worrisome signs or symptoms. This is a summarized report of a complex medical history and hospital stay. For further details, please see the entire medical record. TIME SPENT: Approximately 35 minutes was spent on this discharge, greater than half that time was spent [id number] with the patient and his discussing discharge plans and instructions. ELVIN BRYAN [id number]/[facility] #: [id number] CAROLE
[2019-01-01] MEDS ORDERED: Atorvastatin* 80 MG TAB PO SCH (17:00)
== END 2019-01-01 15:15 | disposition home or self-care (01) ==
LOC: ED 19:33 → MEDTELE 22:43
PROVIDERS: ADMIT Internal Medicine; ATTEND Internal Medicine
DX: R20.0 Anesthesia of skin (principal); I63.9 Cerebral infarction, unspecified; I10 Essential (primary) hypertension; E78.5 Hyperlipidemia, unspecified; K21.9 Gastro-esophageal reflux disease without esophagitis; Z79.82 Long term (current) use of aspirin; Z79.899 Other long term (current) drug therapy; Z87.891 Personal history of nicotine dependence
CPT/HCPCS: 36415; 70450; 70496; 70498; 70551; 71045; 80048; 80053; 80061; 81003; 83036; 83605; 84484; 85025; 85610; 85730; 93005; 96374; 96376; 99285; A9270-GY; G0378; J2060; Q9967